=== PATIENT | female | born 1975 | race African-American/Black ===

== ENCOUNTER 2016-07-04 19:47 | Emergency (ER) | payer MEDICAID ==
[~2016-07-04] VITALS: Ht 165.1 cm; Wt 76.6 kg
[2016-07-04 19:50] VITALS: BP 159/112; PULSE 75; RESP 18; TEMP 98.8; O2SAT 97
--- NOTE | 2016-07-04 20:11 | PD ---
HPI Chief Complaint: Cold / Flu Symptoms Time Seen by Provider: 20:01 Travel History International Travel<30 days: No Contact w/Intl Traveler<30days: No Traveled to known affect area: No History of Present Illness HPI 41-year-old female complains of coughing congestion and chest pain. Patient states that the coughing congestion started about 2 weeks ago. Patient states the cough is persistent and productive. Patient started complaining of anterior chest discomfort and sharp pain for the past 2 days. Patient states the chest pain is worse with deep inspiration and coughing. Patient states that she had fever yesterday. Patient denies any nausea vomiting diarrhea. Patient denies any abdominal pain. Patient denies a history of CAD. Patient denies any history hypertension, diabetes, dyslipidemia. PFSH Past Medical History Cancer: No Cardiovascular Problems: No Chest Pain: Yes (CHEST WALL PAIN) Cerebrovascular Accident: Yes Diabetes: No Diminished Hearing: No Hypertension: Yes Reproductive: Yes (1 CHILD AT 2 DAYS OLD) Respiratory: No Immunizations Current: No ?: Not LMP: 06/16/16 : 4 Para: 3 Miscarriage: 1 Past Surgical History Section: Yes Gynecologic Surgery: Yes (C SECTION) Pacemaker: No Social History Alcohol Use: Yes (Weekends) Tobacco Use: No Substance Use: No Allergies-Medications (Allergen,Severity, Reaction): Coded Allergies: Dilaudid (Verified Allergy, Severe, Itching, 07/04/16) Percocet (Verified Allergy, Severe, Hives, 07/04/16) Reported Meds & Prescriptions Reported Meds & Active Scripts Active No Active Prescriptions or Reported Medications Review of Systems General / Constitutional: Positive: Fever Eyes: No: Visual changes HENT: No: Headaches Cardiovascular: Positive: Chest Pain or Discomfort Respiratory: Positive: Cough, No: Shortness of Breath Gastrointestinal: No: Abdominal Pain Genitourinary: No: Dysuria Musculoskeletal: No: Pain Skin: No Rash Neurologic: No: Weakness Psychiatric: No: Depression Endocrine: No: Polydipsia Hematologic/Lymphatic: No: Easy Bruising Physical Exam Narrative GENERAL: Well-nourished, well-developed patient. SKIN: Warm and dry. HEAD: Normocephalic. EYES: No scleral icterus. No injection or drainage. NECK: Supple, trachea midline. No JVD or lymphadenopathy. CARDIOVASCULAR: Regular rate and rhythm without murmurs, gallops, or rubs. RESPIRATORY: Breath sounds equal bilaterally. No accessory muscle use. GASTROINTESTINAL: Abdomen soft, non-tender, nondistended. MUSCULOSKELETAL: No cyanosis, or edema. Patient has reproducible anterior chest wall pain on palpation around the sternum area. No crepitus or deformity noted. BACK: Nontender without obvious deformity. No CVA tenderness. Neurologic exam normal. Data Data Last Documented VS Vital Signs Date Time Temp Pulse Resp B/P Pulse Ox O2 Delivery O2 Flow Rate FiO2 07/04/16 20:02 73 18 97 Room Air 07/04/16 19:50 98.8 159/112 Orders Electrocardiogram (07/04/16 20:05) Influenzae A/B Antigen (07/04/16 20:05) Chest, Single Ap (07/04/16 20:05) MDM Medical Decision Making Medical Screen Exam Complete: Yes Emergency Medical Condition: Yes Interpretation(s) 2038 PM. Chest x-ray shows no acute consolidation. Influenza AB antigen negative Differential Diagnosis Differential diagnosis including URI, bronchitis, pneumonia, PE, pneumothorax, angina, ME. Narrative Course 41-year-old female with coughing congestion and chest pain with coughing Diagnosis Primary Impression: Bronchitis Additional Impressions: Atypical chest pain Viral syndrome Patient Instructions: General Instructions Additional Instructions: Tylenol Advil as needed for fever aching pain. Take medications as directed. Follow-up with personal physician. Return if persistent problem or worse. Med/Other Pt SpecificInfo: Prescription(s) given Scripts [Phenergan W Codein] No Conflict Check10 Ml PO Q6HR #180 Prov:Raj Ramos MD 07/04/16 Azithromycin (Zithromax Z-Néstor)250 Mg Ctwe048 Mg PO DIRECTED #1 DSPK 500 MG (2 tabs) day 1, then 1 tab days 2-5. Prov:Raj Ramos MD 07/04/16 Disposition: 01 DISCHARGE HOME Condition: Stable Raj Ramos MD Jul 04, 2016 20:11
--- NOTE | 2016-07-04 20:33 | RADHPO ---
EXAM DATE/TIME: 07/04/2016 20:07 [facility] COMPARISON: CHEST SINGLE AP, January 13, 2015, 18:42. INDICATIONS : Cough and congestion for two weeks. Chest pain for two days. MEDICAL HISTORY : None. SURGICAL HISTORY : None. ENCOUNTER: Initial ACUITY: 2 weeks PAIN SCORE: 6/10 LOCATION: Bilateral chest FINDINGS: A single view of the chest demonstrates the lungs to be symmetrically aerated without evidence of mas s, infiltrate or effusion. The cardiomediastinal contours are unremarkable. Osseous structures are intact. CONCLUSION: No acute disease. Emigdio Angel MD on July 04, 2016 at 20:31 Board Certified Radiologist. This report was verified electronically.
[2016-07-04] MEDS ORDERED: PHENERGAN W CODEIN PO (20:44)
[2016-07-04] MEDS ORDERED: ZITHTAB PO (20:44)
[2016-07-04 20:51] VITALS: BP 169/119
--- NOTE | 2016-07-05 17:52 | EKG ---
Date Performed: 07/04/2016 Time Performed: 20:07:54 PTAGE: 41 years EKG: Sinus rhythm . Consider anteroseptal [place] - age indeterminate Normal ECG PREVIOUS TRACING : 01/13/2015 17.28 DOCTOR: Clarence Burk Interpretating Date/Time 07/05/2016 17:52:00
== END 2016-07-04 20:52 | disposition home or self-care (01) ==
LOC: PHED 19:47
DX: J40 Bronchitis, not specified as acute or chronic (principal); R07.89 Other chest pain; B34.9 Viral infection, unspecified; I10 Essential (primary) hypertension
CPT/HCPCS: 71010; 87804; 93005

== ENCOUNTER 2017-01-01 23:35 | Emergency (ER) | payer MEDICAID ==
[~2017-01-01] VITALS: Ht 165.1 cm; Wt 80.2 kg
[~2017-01-01 23:35] MED LIST: PHENERGAN W CODEIN PO; ZITHTAB PO
[2017-01-01 23:44] VITALS: BP 175/101; PULSE 78; RESP 12; TEMP 97.9; O2SAT 99
--- NOTE | 2017-01-02 00:51 | PD ---
HPI Chief Complaint: Eye Problems/Injury Time Seen by Provider: 00:43 Travel History International Travel<30 days: No Contact w/Intl Traveler<30days: No Traveled to known affect area: No History of Present Illness HPI The patient is a 41-year-old female that has I discomfort for 5 days in her right eye. 2 days ago she went to an urgent care Center and they gave her antibiotic but the antibiotic is not working. She denies any fever but does feel some discomfort when she looks down. There is no foreign body sensation. She states she has a yellow drainage. She denies any photophobia. 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 PFSH Past Medical History Cancer: No Cardiovascular Problems: No Chest Pain: Yes (CHEST WALL PAIN) Cerebrovascular Accident: Yes Diabetes: No Diminished Hearing: No Hypertension: Yes Reproductive: Yes (1 CHILD AT 2 DAYS OLD) Respiratory: No Immunizations Current: Yes Tetanus Vaccination: < 5 Years Influenza Vaccination: No ?: Unknown LMP: One week ago : 4 Para: 3 Miscarriage: 1 Past Surgical History Section: Yes Gynecologic Surgery: Yes (C SECTION) Pacemaker: No Social History Alcohol Use: Yes (Occasionally) Tobacco Use: No Substance Use: No Allergies-Medications (Allergen,Severity, Reaction): Coded Allergies: acetaminophen (Unverified Allergy, Severe, Hives, 01/02/17) hydromorphone (Unverified Allergy, Severe, Itching, 01/02/17) oxycodone (Unverified Allergy, Severe, Hives, 01/02/17) Reported Meds & Prescriptions Reported Meds & Active Scripts Active [Phenergan W Codein] 10 Ml PO Q6HR Zithromax Z-Néstor (Azithromycin) 250 Mg Dspk 250 Mg PO DIRECTED 500 MG (2 tabs) day 1, then 1 tab days 2-5. Review of Systems Except as stated in HPI: all other systems reviewed are Neg Physical Exam Narrative GENERAL: The patient is alert, oriented 3 in slight apparent distress with her right eye discomfort. Her vital signs show blood pressure 175/101 but otherwise normal. SKIN: Focused skin assessment warm/dry. HEAD: Atraumatic. Normocephalic. EYES: Pupils equal and round. No scleral icterus. No injection or drainage., The visual acuity in the left eye is 20 over 20. There is conjunctival injection in the right eye but none on the left. For seen staining reveals no corneal uptake. No pus is seen, the drainage I see is clear. Lids were everted and no foreign body seen. ENT: No nasal bleeding or discharge. Mucous membranes pink and moist. NECK: Trachea midline. No JVD. CARDIOVASCULAR: Regular rate and rhythm. No murmur appreciated. RESPIRATORY: No accessory muscle use. Clear to auscultation. Breath sounds equal bilaterally. GASTROINTESTINAL: Abdomen soft, non-tender, nondistended. Hepatic and splenic margins not palpable. MUSCULOSKELETAL: No obvious deformities. No clubbing. No cyanosis. No edema. NEUROLOGICAL: Awake and alert. No obvious cranial nerve deficits. Motor grossly within normal limits. Normal speech. PSYCHIATRIC: Appropriate mood and affect; insight and judgment normal. Data Data Last Documented VS Vital Signs Date Time Temp Pulse Resp B/P (MAP) Pulse Ox O2 Delivery O2 Flow Rate FiO2 01/01/17 23:44 97.9 78 12 175/101 (125) 99 MDM Medical Decision Making Medical Screen Exam Complete: Yes Emergency Medical Condition: Yes Medical Record Reviewed: Yes Differential Diagnosis Viral Conjunctivitis, foreign body lead, corneal abrasion, bacterial conjunctivitis, iritis, allergic conjunctivitis Narrative Course The patient does not appear to have iritis. She has a likely viral conjunctivitis. The antibacterial ointment apparently has not worked. The patient is unlikely to have allergic conjunctivitis because it involves only one eye. There is not a lot of itching associated with this condition as well. Plan: The patient will use 4 times daily eye compresses. If not better, she should get a second opinion with an software manager. She is given saline pledgets to wash her eye out after the eye compresses. Diagnosis Primary Impression: Viral conjunctivitis, right eye Additional Instructions: As we discussed, a second opinion would involve an software manager. They have better equipment and better experience for this. This condition should resolve around 5 days on its own with warm compresses. Med/Other Pt SpecificInfo: No Change to Meds Disposition: 01 DISCHARGE HOME Condition: Stable Feliberto Allen MD Jan 02, 2017 00:51
[2017-01-02] MEDS ORDERED: IBUP-232 PO (00:53)
[2017-01-02] MEDS ORDERED: IBUPROFEN 600 MG TAB PO ONE (01:00)
[2017-01-02 01:12] VITALS: BP 140/96
== END 2017-01-02 01:14 | disposition home or self-care (01) ==
LOC: PHED 23:35
DX: B30.9 Viral conjunctivitis, unspecified (principal); I10 Essential (primary) hypertension; Z86.79 Personal history of other diseases of the circulatory system
CPT/HCPCS: 99283